=== PATIENT | male | born 1985 | race Caucasian/White ===

== ENCOUNTER 2024-08-10 11:02 | Outpatient (CLI) | payer MEDICARE, MEDICAID, SELFPAY ==
[2024-08-10 11:20] LABS: Hematocrit 47.5 % (40.0-54.0); Mean Corpuscular HGB Conc 31.6 g/dL (32-36); Mean Corpuscular Hemoglobin 27.3 pg (27.0-31.0); Mean Corpuscular Volume 86.5 fL (78.0-102.0); Mean Platelet Volume 10.2 fl (8.7-11.0); Platelet Count Result 309 K/mm3 (150-420); Red Blood Count 5.49 M/mm3 (4.70-6.10); Red Cell Distribution Width 12.7 % (11.6-14.4); White Blood Count 6.3 K/mm3 (4.8-10.8)
[2024-08-10 11:54] LABS: Alanine Aminotransferase 50 U/L (16-63); Albumin Level 4.5 g/dL (3.4-5.0); Alkaline Phosphatase 118 U/L (46-116); Anion Gap 8 mmol/L (4-12); Aspartate Amino Transferase 24 U/L (15-37); Bilirubin,Total 0.4 mg/dL (0.00-1.00); Blood Urea Nitrogen 11 mg/dL (7-18); Calcium 10.1 mg/dL (8.5-10.1); Carbon Dioxide 34 mmol/L (21-32); Chloride 102 mmol/L (98-108); Cholesterol 249 mg/dL (0-200); Estimated Glomerular Filt Rate > 60; Glucose 72 mg/dL (70-99); HDL Direct 39 mg/dL (40-60); LDL Cholesterol Calculated 173 mg/dL (<130); Osmolality Calculated 296 mOsm/kg (285-295); Potassium 5.2 mmol/L (3.5-5.1); Sodium 144 mmol/L (136-145); Total Protein 7.8 g/dL (6.4-8.2); Triglycerides 187 mg/dL (0-150)
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
[2024-08-14 15:29] LABS: Lamotrigine Lamictal 14.3 mcg/mL (2.5-15.0)
== END 2024-08-10 11:03 | disposition home or self-care (01) ==
PROVIDERS: PCP Physician Assistant; Visit Provider Physician Assistant
DX: E78.2 Mixed hyperlipidemia (principal); G40.009 Localization-related (focal) (partial) idiopathic epilepsy and epileptic syndromes with seizures of localized onset, not intractable, without status epilepticus
CPT/HCPCS: 36415; 80053; 80061; 80175; 85027